=== PATIENT | male | born 1990 | race African-American/Black ===

== ENCOUNTER 2020-01-03 14:18 | Emergency (ER) | payer OTHER ==
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
[2020-01-03] MEDS ORDERED: HYDROCODONE/APAP 10/325 TAB ONE (16:29)
[2020-01-03 16:56] VITALS: BP 144/101; TEMP 98.6; O2SAT 98
== END 2020-01-03 16:51 | disposition home or self-care (01) ==
LOC: ER 14:18
DX: T23.262A Burn of second degree of back of left hand, initial encounter (principal); X08.8XXA Exposure to other specified smoke, fire and flames, initial encounter; Y93.9 Activity, unspecified; Y92.9 Unspecified place or not applicable
CPT/HCPCS: 99284